=== PATIENT | male | born 1930 | race Caucasian/White ===

== ENCOUNTER 2019-09-26 06:05 | Day surgery (SDC) | payer MEDICARE, OTHER ==
[~2019-09-26] VITALS: Ht 177.8 cm; Wt 80.6 kg
[2019-09-26] VITALS (18 sets, daily range): BP systolic 101–1109; BP diastolic 10–819; PULSE 61–83; TEMP 97.4
[~2019-09-26 06:05] MED LIST: ASPIRIN 32325 MG/TAB PO; CALAN80 MG PO; FISH OIL 1000MG1 CAP PO; GLUCOSAMINE & C1 CA1 PO; HYDRODIURIL50 MG PO; PAXIL 20MG20 MG PO; VITAMIN C500 MG PO; VITAMIN E 400 U4001 PO
[2019-09-26 06:57] LABS: HEMATOCRIT 44.1 % (42.0-52.0); HEMOGLOBIN 14.8 g/dl (13.5-18.0); MEAN CELL VOLUME 94 fl (80.0-100.0); MEAN CORPUSCULAR HEMOGLOBIN 32 pg (27.0-31.0); MEAN CORPUSCULAR HGB CONC 34 g/dl (33.0-37.0); MEAN PLATELET VOLUME 9.7 fl (7.4-10.4); PLATELET COUNT 173 K/mm3 (130-400); REDCELL DISTRIBUTION WIDTH-CV 13.1 % (11.5-14.5)
[2019-09-26 07:06] LABS: INR 0.9 (0.8-3.0); PROTHROMBIN TIME 10.3 SECONDS (9.7-12.8)
[2019-09-26 07:08] LABS: CALCIUM 9.1 mg/dL (8.4-10.2); CREATININE, serum 0.85 (0.66-1.25); POTASSIUM 4.2 mmol/L (3.4-5.0)
[2019-09-26 07:09] LABS: PARTIAL THROMBOPLASTIN TIME 25.6 SECONDS (26.0-37.0)
[2019-09-26] MEDS ORDERED: GLUCOSAMINE & C1 TAB PO (07:13)
[2019-09-26] MEDS ORDERED: MASON NATURAL1200 MG PO (07:14)
[2019-09-26] MEDS ORDERED: PLAVIX 75MG TAB75 MG PO (07:15)
[2019-09-26] MEDS ORDERED: PRINZIDE 12.5 M1 TAB PO (07:15)
--- NOTE | 2019-09-26 08:03 | NUR ---
Pt to procedure,report to Enrique Ruffin.
--- NOTE | 2019-09-26 08:18 | NUR ---
SEE MERGE DOCUMENTATION FOR MEDICATION ADMINISTRATION TIMES AND INTRA/POST PROCEDURE SEDATION ASSESSMENTS. PLAN FOR RIGHT RADIAL APPROACH, POSITIVE BARBEAU TEST. BOTH RIGHT WRIST AND RIGHT GROIN PREPPED.
[2019-09-26] MEDS ORDERED: ASPIRIN 81M81 MG/TA2 PO (09:14)
[2019-09-26] MEDS ORDERED: CRESTOR 10MG10 MG PO (09:14)
[2019-09-26] MEDS ORDERED: IMDUR 30MG30 MG/TAB PO (09:15)
--- NOTE | 2019-09-26 13:27 | NUR ---
Discharge instructions given to pt.Pt verbalizes understanding.INT removed,catheter tip intact.Pt escorted out via wheelchair by this nurse.
== END 2019-09-26 13:28 | disposition home or self-care (01) ==
LOC: COL.CAR 06:05
PROVIDERS: Internal Medicine Cardiovascular Disease
DX: I25.10 Atherosclerotic heart disease of native coronary artery without angina pectoris (principal); Z79.899 Other long term (current) drug therapy; Z79.82 Long term (current) use of aspirin; I77.810 Thoracic aortic ectasia; I35.1 Nonrheumatic aortic (valve) insufficiency; Z95.818 Presence of other cardiac implants and grafts; I47.1 Supraventricular tachycardia; I10 Essential (primary) hypertension; J44.9 Chronic obstructive pulmonary disease, unspecified; Z88.8 Allergy status to other drugs, medicaments and biological substances
CPT/HCPCS: J1644; J2250; J3010